=== PATIENT | male | born 1960 | race Caucasian/White ===

== ENCOUNTER 2018-03-19 17:53 | Emergency (ER) | payer SELFPAY ==
[~2018-03-19] VITALS: Ht 165.1 cm; Wt 58.0 kg
[2018-03-19] MEDS ORDERED: IBUPROFEN 600MG TABLET PO ONE (22:30)
[2018-03-19] MEDS ORDERED: ACETAMINOPHEN 500MG TABLET PO ONE (22:30)
[2018-03-19 22:40] VITALS: BP 146/89
== END 2018-03-19 22:40 | disposition home or self-care (01) ==
LOC: ER 21:54
DX: K08.89 Other specified disorders of teeth and supporting structures (principal); E11.9 Type 2 diabetes mellitus without complications
CPT/HCPCS: 99283